=== PATIENT | female | born 2000 ===

== ENCOUNTER 2024-10-12 14:39 | Emergency (ER) | payer OTHER, SELFPAY ==
[2024-10-12 14:51] VITALS: BP 148/93; PULSE 73; RESP 16; TEMP 36.3; O2SAT 100; BMI 26.4
--- NOTE | 2024-10-12 14:53 | ED.GENADULT ---
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 She reports SI but no plan and no HI/AH/VH. She states she is just having more mental breakdowns. She denies drug use. Has no therapist or psychiatrist. MD complaint: depression/anxiety Onset (ago): month(s) Severity: severe Relieving factors: none Exacerbating factors: other Associated symptoms: denies other symptoms Treatments prior to arrival: none Related Data Home Medications ?Medication ?Instructions ?Recorded ?Confirmed No Known Home Meds 10/12/24 10/12/24 Allergies Allergy/AdvReac Type Severity Reaction Status Date / Time No Known Allergies Allergy Verified 10/12/24 14:54 Review of Systems Review of Systems: Constitutional : No Fever, No Chills ENT/Mouth : No Ear Pain, No Nasal Congestion, No sore throat Eyes: No Eye Pain, No Swelling, No Redness Cardiovascular : No Chest Pain, No SOB Respiratory : No Cough, No Sputum, No Dyspnea Gastrointestinal : No Nausea, No Vomiting, No Diarrhea, No Hematochezia, No Melena Genitourinary : No Dysuria, No Urinary Frequency, No Hematuria Musculoskeletal : No Myalgias Skin : No Skin Lesions, No rash Neuro : No Weakness, No Numbness, No Paresthesias, No Dizziness, No Headache Psych : positive Anxiety, positive Depression, positive SI no HI Heme/Lymph: No Lymphadenopathy Endocrine : No Polyuria, No Polydipsia All other systems reviewed and are negative [facility] Past Medical History Attestation statement: The following information was validated with the patient. Medical History Depression Social History Social History (Updated 10/12/24 @ 15:28 by Ankita Tinsley DO) Patient Tobacco Use Status: Never used Tobacco Advance Directives: No Advance Directives Information Provided: No Do you have a plan to hurt others: No Plan Patient : No Physical Exam ED Vital Signs: Vital Signs - 24 hr 10/12/24 14:51 Temperature 97.4 F Pulse Rate 73 Respiratory Rate 16 Blood Pressure 148/93 H Pulse Oximetry 100 Oxygen Delivery Method Room Air BMI result Body Mass Index 26.4 Appearance: Alert. Oriented X3. No acute distress. Eyes: Pupils equal, round and reactive to light. ENT: Pharynx normal. Neck: Normal inspection. Neck supple. CVS: Normal heart rate and rhythm. Pulses normal. Respiratory: No respiratory distress. Breath sounds normal. Abdomen: Soft and non-tender. Skin: Skin warm and dry. Normal skin color. Normal skin turgor. Extremities: No lower extremity edema. No calf ttp Neuro: Oriented X 3. No motor deficit. No sensory deficit. CN2-12 intact Course Course Course Narrative: RME, this is a rapid medical exam performed by Wade Blum please refer to primary provider for complete H&P- 24 year old female presents for evaluation of passive suicidal ideation. Patient reports that she has been having depression with passive suicidal thoughts for the last year. She reports her symptoms are worsening with more frequent ?mental breakdown. ? 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 She is not on any meds for anxiety or depression. Plan for medical clearance and care team evaluation Medications Administered Discontinued Medications Generic Name Dose Route Start Last Admin Trade Name Freq PRN Reason Stop Dose Admin Lorazepam 2 mg 10/12/24 17:00 10/12/24 17:08 Lorazepam 1 Mg Tablet PO 10/12/24 17:01 2 mg ONCE ONE Administration Medical Decision Making Medical Decision Making [facility] Narrative: 24 yo female with PMH of depression not on any medications here with c/o SI but no plan she works as a lead pressman [employer] and has prior inpatient psychiatric admissions as a teenager. She has no medical complaints. Will obtain labs and consult CARE team Differential Diagnosis Differential Diagnoses: The differential diagnosis associated with the presentation includes anxiety, depression Admission/Observation Consideration of admission/observation: Escalation of care including admission/observation considered physician observation started at 329pm pending CARE team observation ended at 632pm cleared by CARE team Consult Healthcare Provider Management of the patient was discussed with: Behavioral Health Provider Lab Data [facility] Lab Attestation statement: I reviewed the patient's lab results. 10/12/24 15:27 10/12/24 15:27 Labs: Lab Results 10/12/24 10/12/24 Range/Units 15:27 15:28 WBC 8.3 (4.8-10.8) X10*3/uL RBC 4.13 L (4.20-5.50) X10*6/uL Hgb 11.4 L (12.0-16.0) g/dl Hct 35.3 L (37.0-47.0) % MCV 85.5 (80.0-98.0) fL MCH 27.6 (27.0-33.0) pg MCHC 32.3 (31.0-35.0) g/dl RDW 15.9 (11.0-16.0) % Plt Count 357 (160-400) X10*3/uL MPV 9.7 (9.4-12.3) fL Immature Gran % (Auto) 0.1 (0.0-0.4) % Neut % (Auto) 61.1 (45-73) % Lymph % (Auto) 31.9 (20-40) % [place] % (Auto) 5.2 (2-11) % Eos % (Auto) 1.2 (0-4) % Baso % (Auto) 0.5 (0-2) % Lymph # (Auto) 2.7 (1.2-4.9) X10*3/uL [place] # (Auto) 0.4 (0.1-1.2) X10*3/uL Eos # (Auto) 0.1 (0.0-0.4) X10*3/uL Baso # (Auto) 0.0 (0.0-0.2) X10*3/uL Abs Immat Gran (auto) 0.01 (0.00-0.03) X10*3/uL Absolute Neuts (auto) 5.1 (2.0-8.3) x10*3/uL Absolute Nucleated RBC 0.000 (0.0-0.012) X10*3/uL Nucleated RBC % (auto) 0.0 (0.0-0.2) /100WBC Sodium 139 (135-145) mmol/L Potassium 4.0 (3.3-5.1) mmol/L Chloride 107 (96-108) mmol/L Carbon Dioxide 25 (22-29) mmol/L Anion Gap 11 L (12-20) BUN 12 (9-16) mg/dL Creatinine 0.78 (0.5-1.4) mg/dL Estim Creat Clear Calc 116.6 Estimated GFR > 60 Random Glucose 94 (60-115) mg/dL Calcium 9.3 (8.4-10.2) mg/dL Total Bilirubin 0.3 (0.0-1.0) mg/dL AST 25 (5-31) U/L ALT 19 (0-31) U/L Alkaline Phosphatase 72 (39-117) U/L Total Protein 8.2 H (6.5-8.0) g/dL Albumin 4.5 (3.5-5.0) g/dL Urine Color Yellow Urine Appearance Turbid Urine pH 8.5 (5.0-9.0) Ur Specific [place] 1.025 (1.005-1.025) Urine Protein Negative (Neg-Trace) mg/dL Urine Glucose (UA) Negative (Negative) mg/dL Urine Ketones Negative (Negative) mg/dL Urine Blood Negative (Negative) Urine Nitrite Negative (Negative) Ur Leukocyte Esterase Trace H (Negative) Urine RBC 0-2 (0-2) /HPF Urine WBC 11-20 H (0-5) /HPF Ur Squamous Epith Cells >20 (0-2) /HPF Urine Bacteria 3+ (None Seen) Hyaline Casts 0-2 (0-2) /LPF Urine Test NEGATIVE (NEGATIVE) Salicylates < 5.0 L (15-30) mg/dL Urine Opiates Screen Not Detected (Not Detect) Ur Buprenorphine Scrn Not Detected (Not Detect) ng/mL Ur Oxycodone Screen Not Detected (Not Detect) ng/mL Urine Methadone Screen Not Detected (Not Detect) ng/mL Urine Fentanyl Screen Not Detected (Not Detect) Acetaminophen < 3 (<30) mcg/mL Ur Barbiturates Screen Not Detected (Not Detect) Ur Phencyclidine Scrn Not Detected (Not Detect) Ur Amphetamines Screen Not Detected (Not Detect) U Benzodiazepines Scrn Not Detected (Not Detect) Urine Cocaine Screen Not Detected (Not Detect) U Marijuana (THC) Screen Not Detected (Not Detect) Ethyl Alcohol 11 mg/dL Discharge Plan Discharge Clinical Impression: Depression Qualifiers: Depression Type: unspecified Qualified Code(s): F32.A - Depression, unspecified Patient Disposition: Home, Self-Care Instructions: Depression (ED) Additional Instructions: follow up with plan from CARE team with outpatient providers return for any worsening symptoms or concerns Prescriptions: No Action No Known Home Meds Stand Alone Forms: Work/School Release Interventions: [place]-Suicide Risk Severity Scale Last Done: 10/12/24 17:12 Print Language: Kazakh
[2024-10-12 15:37] LABS: MANUAL DIFF FLAG NO
--- NOTE | 2024-10-12 15:37 | PC.NURSE ---
patient brought in from triage, changed into hospital attire, belongings secured, security assisted. patient is calm and cooperative, tearful. patient has SI with no plan. feelings of being overwhelmed.
[2024-10-12 15:40] LABS: Basophils Percent Auto 0.5 % (0-2); Eosinophils Absolute Auto 0.1 X10*3/uL (0.0-0.4); Eosinophils Percent Auto 1.2 % (0-4); Hematocrit 35.3 % (37.0-47.0); Hemoglobin 11.4 g/dl (12.0-16.0); Imm Gran Abs Auto 0.01 X10*3/uL (0.00-0.03); Imm Gran Pct Auto 0.1 % (0.0-0.4); Lymphocytes Absolute Auto 2.7 X10*3/uL (1.2-4.9); Lymphocytes Percent Auto 31.9 % (20-40); Mean Corpuscular HGB Conc 32.3 g/dl (31.0-35.0); Mean Corpuscular Hemoglobin 27.6 pg (27.0-33.0); Mean Corpuscular Volume 85.5 fL (80.0-98.0); Mean Platelet Volume 9.7 fL (9.4-12.3); Monocytes Absolute Auto 0.4 X10*3/uL (0.1-1.2); Monocytes Percent Auto 5.2 % (2-11); Neutrophils Absolute Auto 5.1 x10*3/uL (2.0-8.3); Neutrophils Percent Auto 61.1 % (45-73); Platelet Count 357 X10*3/uL (160-400); Red Blood Count 4.13 X10*6/uL (4.20-5.50); Red Cell Distribution Width 15.9 % (11.0-16.0); White Blood Count 8.3 X10*3/uL (4.8-10.8)
[2024-10-12 15:45] LABS: Appearance Urine Turbid; Color Urine Yellow; Glucose Urine UA Negative (Negative); Leukocyte Esterase Urine Trace (Negative); Nitrite Urine Negative (Negative); PH 8.5 (5.0-9.0); Specific Gravity - Urine 1.025 (1.005-1.025); UMIC TRIGGER UA YES; Urine Blood Negative (Negative); Urine Ketones Negative (Negative); Urine Protein Negative (Neg-Trace)
[2024-10-12 15:46] LABS: UPreg QC Valid YES; Urine Pregnancy NEGATIVE (NEGATIVE)
[2024-10-12 15:50] LABS: Amphetamine Screen Urine Not Detected (Not Detect); Barbiturates, Urine Not Detected (Not Detect); Benzodiazepines Screen Urine Not Detected (Not Detect); Buprenorphine Scr Not Detected (Not Detect); Cannabinoid Screen Urine Not Detected (Not Detect); Cocaine Screen Urine Not Detected (Not Detect); Fentanyl, urine Not Detected (Not Detect); Methadone Screen, Urine Not Detected (Not Detect); Opiate Screen Urine Not Detected (Not Detect); Oxycodone Screen Urine Not Detected (Not Detect); Phencyclidine Screen Urine Not Detected (Not Detect)
[2024-10-12 15:53] LABS: Alanine Aminotransferase 19 U/L (0-31); Albumin Level 4.5 g/dL (3.5-5.0); Alkaline Phosphatase 72 U/L (39-117); Anion Gap 11 (12-20); Aspartate Amino Transferase 25 U/L (5-31); Bilirubin Total 0.3 mg/dL (0.0-1.0); Blood Urea Nitrogen 12 mg/dL (9-16); Calcium 9.3 mg/dL (8.4-10.2); Carbon Dioxide 25 mmol/L (22-29); Chloride 107 mmol/L (96-108); Creatinine Clr Calc Pharmacy 116.6; Estimated Glomerular Filt Rate > 60; Ethanol 11 mg/dL; Glucose Random 94 mg/dL (60-115); Sodium 139 mmol/L (135-145); Total Protein 8.2 g/dL (6.5-8.0)
[2024-10-12 15:57] LABS: Acetaminophen LAB < 3 mcg/mL (<30); Salicylate < 5.0 mg/dL (15-30)
--- NOTE | 2024-10-12 16:03 | PC.NURSE ---
patient states she is on no medications
--- OUTSIDE RECORDS SUMMARY | 2024-10-12 16:37 | XMS_ITS | Continuity of Care Document ---
Author Organization [facility] Address [address] [place] [address] Phone Care Team Providers Care Junior Financial Analyst Name Role Phone Alexey Herman MD Unavailable Unavailable Allergies, Adverse Reactions, Alerts Substance Reaction Status Criticality No Known allergies Procedures Procedure Date Screening, visual acuity, quantitative, bilat Preventive checkup, est, 5-11 yrs TDAP 7 Years And Older Immunization admin, 1 vaccine 0 Varicella Chicken pox immunization Immunization admin, each add vaccine Feb Advance Directives Directive Yes / No Effective Date File Name Resuscitation Not Answered N/A N/A Life Support Not Answered N/A N/A Intubation Not Answered N/A N/A Antibiotics Not Answered N/A N/A IV Fluid Support Not Answered N/A N/A Tube Feed Not Answered N/A N/A Other Directive N/A N/A WARNING:The information contained in this section is historical and is provided for information only and does not constitute a legal document or any assurance that the information is still accurate. Please verify the information with the mejia of the legal document before using it for clinical purposes. Encounters Encounter Description Practice Location Reason(s) For Visit Diagnoses Date Provider Providers Copied on Encounter [facility], [address] [place] [address], [place] seymour X-1, [id number], tel:[phone] No Information Virgil Blackburn. [address] [place] [address], [id number], [place]. tel:[phone] Preventive checkup, est, 5-11 yrs [facility], [address] [place] [address], [place], [place], [id number], [place] tel:[phone] [facility] [place] well [place] (chief complaint) Well child check, over 28 Days Old [place]. [address], [address], [place], [place], [id number], [place]. tel:[phone] Referring Provider: Radhika Ríos, [address], [place], [address]. tel:[phone] Family History Family Member Type Diagnosis Age At Onset No Information Immunizations Vaccine Date Status Comments Tdap administered Source: New Imm unization Record Varicella administered Source: New Imm unization Record MMR administered Source: New Imm unization Record polio, inactivated (IPV) administered Regla rce: New Immunization Record DTaP administered Source: New Imm unization Record DTaP administered Source: New Imm unization Record varicella administered Source: New Imm unization Record MMR administered Source: New Imm unization Record Hib (HbOC) administered Source: New Imm unization Record polio, inactivated (IPV) administered Regla rce: New Immunization Record hep B (ped/adol, 3 dose) administered Regla rce: New Immunization Record Hib (HbOC) administered Source: New Imm unization Record DTaP administered Source: New Imm unization Record Hib (HbOC) administered Source: New Imm unization Record polio, inactivated (IPV) administered Regla rce: New Immunization Record DTaP administered Source: New Imm unization Record hep B (ped/adol, 3 dose) administered Regla rce: New Immunization Record Hib (HbOC) administered Source: New Imm unization Record polio, inactivated (IPV) administered Regla rce: New Immunization Record DTaP administered Source: New Imm unization Record hep B (ped/adol, 3 dose) administered Regla rce: New Immunization Record Payers Payer name Insurance type Covered republican ID Authoriza tion(s) No Information Social History Type Description Quantity Date Captured Comments Alcohol Use Details Unknown Caffeine Use Details Unknown Tobacco Use Status No Information Smoking Status Never smoker Sex Female Chief Complaint And Reason For Visit No Information Reason For Referral Reason For Referral No Information History Of Present Illness Encounter Date Complaint History Of Prese nt Illness No Information Functional Status Date Functional Assessmen t No Information Instructions Date Instruction Additional Infor mation No Information Assessments Type Assessment Date No Information Patient Care Teams Name Effective Dates (start - stop) Status Members No Information
[2024-10-12] MEDS: LORazepam 1 MG TABLET 2 MG PO (17:08)
--- NOTE | 2024-10-12 17:10 | PC.NURSE ---
patient states she is feeling increasingly anxious, patient states she feels embarressed, patient reassured that we are glad she came for help and are here for her. ED attending Dr Tinsley made aware, medicated per OCT. patient states she has a headache from crying all day, this RN offered tylenol or motrin, patient refused. patient states she worked last night and has not slept yet, lights turned down for comfort, patient laying down. safety measures in place.
[2024-10-12 17:39] LABS: Bacteria Urine 3+ (None Seen); Hyaline Casts Urine 0-2 /LPF (0-2); RBC Urine 0-2 /HPF (0-2); Squamous Epithelial Cell Urine >20 /HPF (0-2)
[2024-10-12 18:38] VITALS: BP 115/75; PULSE 89; RESP 14; TEMP 36.7; O2SAT 100
--- NOTE | 2024-10-12 18:45 | PC.NURSE ---
patient belongings returned, patient d/c with fiance.
== END 2024-10-12 18:46 | disposition home or self-care (01) ==
PROVIDERS: Physician Assistant; Emergency Provider Emergency Medicine
DX: F32.A Depression, unspecified (principal); F41.9 Anxiety disorder, unspecified; R45.851 Suicidal ideations
CPT/HCPCS: 36415; 80053; 80143; 80179; 80307; 81001; 81003; 81025; 85025; 99284; 99285; S9485